=== PATIENT | male | born 1980 | race Caucasian/White ===

== ENCOUNTER 2021-02-26 08:52 | Emergency (ER) | payer BC ==
[~2021-02-26] VITALS: Ht 185.4 cm; Wt 97.5 kg
[2021-02-26 08:55] VITALS: BP_SYST 147
--- NOTE | 2021-02-26 09:00 | NUR ---
Patient to ER bed 7 to gown for evaluation. Side rails up.
--- NOTE | 2021-02-26 09:05 | NUR ---
Pt walked in to ER with c/o lower back pain 01/02 after fall from chair and "landed wrong" Reports it is more painful when he tries to move. Denies any other symptoms at this time. V/S stable, no acute distress noted.
--- NOTE | 2021-02-26 09:10 | NUR ---
ER Dr. Hand at bedside examining patient.
--- NOTE | 2021-02-26 09:15 | NUR ---
Patient transported to radiology via gurney, accompanied by staff.
[2021-02-26] MEDS ORDERED: SOM350 PO (12:24)
[2021-02-26] MEDS ORDERED: IBUP-1971 PO (12:24)
--- NOTE | 2021-02-26 12:35 | NUR ---
Patient given written and verbal discharge instructions and verbalizes understanding. ER MD discussed with patient the results and treatment provided. Patient in stable condition. ID arm band removed. Rx of Motrin and Soma given. Patient educated on pain management and to follow up with PMD. Pain Scale 0. Opportunity for questions provided and answered. Medication side effect fact sheet provided.
[2021-02-26 12:39] VITALS: BP_SYST 147
== END 2021-02-26 12:35 | disposition home or self-care (01) ==
LOC: SED 08:52
DX: S33.5XXA Sprain of ligaments of lumbar spine, initial encounter (principal); W07.XXXA Fall from chair, initial encounter; Y93.89 Activity, other specified; Y92.89 Other specified places as the place of occurrence of the external cause; Y99.8 Other external cause status
CPT/HCPCS: 72100-TC; 99283